=== PATIENT | female | born 1970 | race Caucasian/White ===

== ENCOUNTER 2020-06-29 20:10 | Emergency (ER) | payer OTHER ==
[~2020-06-29 20:10] MED LIST: ALDACTONE25 MG PO; AMIODARONE HCL200 MG PO; ASPIRIN EC81 MG PO; COREG25 MG PO; ENTRESTO 49 MG1 EACH PO; K-DUR20 MEQ PO; LASIX40 MG PO; LOPRESSOR50 MG PO; TOPROL XL 50 MG50 MG PO; ZOLOFT50 MG PO
[2020-06-29 21:19] LABS: BASOPHIL 0.6 % (0-2); EOSINOPHIL 1.4 % (0-5); HCT 50.3 % (37.0-47.0); HGB 15.8 g/dl (12.5-16.0); LYMPHOCYTE 19.2 % (15-48); MCH 31.7 pg (25.0-31.0); MCHC 31.4 g/dL (32.0-36.0); MCV 100.8 fL (78.0-100.0); MONOCYTE 8.2 % (0-12); MPV 9.9 fL (6.0-9.5); NEUTROPHIL 70.3 % (41-80); NRBC 0.4; PLT 287 K/uL (150-400); RBC 4.99 M/uL (4.20-5.40); WBC 7.9 K/uL (4.0-10.5)
[2020-06-29 21:31] LABS: INR 1.11 (0.9-1.2); PROTHROMBIN TIME 13.6 SECONDS (11.4-13.6); PTT 30.8 SECONDS (22.2-34.7)
[2020-06-29 21:47] LABS: PRO-BNP 2777 pg/mL (<125)
[2020-06-29 21:51] LABS: ALBUMIN 3.8 g/dL (3.4-5.0); BILIRUBIN - TOTAL 0.8 mg/dL (0.2-1.0); CREATININE 1.12 mg/dL (0.51-0.95); GLOBULIN (CALCULATION) 3.1 g/dL; MAGNESIUM 1.9 mg/dL (1.8-2.4); POTASSIUM 4.9 mmol/L (3.5-5.1); TOTAL PROTEIN 6.9 g/dL (6.4-8.2)
[2020-06-29 22:01] LABS: LACTIC ACID 2.6 mmol/L (0.4-1.9)
== END 2020-06-30 02:36 | disposition other institution (70) ==
LOC: FER 20:10
PROVIDERS: Emergency Medicine
DX: I50.1 Left ventricular failure, unspecified (principal); Z95.0 Presence of cardiac pacemaker; Z79.899 Other long term (current) drug therapy; Z20.822 Contact with and (suspected) exposure to COVID-19
CPT/HCPCS: 36415; 71045; 80053; 82550; 82728; 83605; 83615; 83735; 83880; 84484; 85025; 85610; 85730; 93005; J1170; J1200; J1940; J2060; U0002